=== PATIENT | female | born 1955 | race Caucasian/White ===

== ENCOUNTER 2022-03-19 01:31 | Day surgery (SDC) | payer MEDICARE, OTHER, SELFPAY ==
[2022-03-18 11:51] VITALS: BMI 23.3
[2022-03-19] VITALS (9 sets, daily range): BP systolic 130–161; BP diastolic 74–91; PULSE 74–86; RESP 15–22; TEMP 37; O2SAT 97–100; BMI 23.3
--- NOTE | 2022-03-19 11:10 | P.SEDATION_ITS ---
Moderate Sedation Note-Pt Data Patient Data Diagnosis: History of stroke, valvular heart disease Present Complaint: History of stroke, valvular heart disease Procedure to be performed/Plan: Multiplanar transesophageal echocardiography with color flow and pulse wave Doppler Agitated saline study Moderate sedation Allergies Allergy/AdvReac Type Severity Reaction Status Date / Time alprazolam Allergy Other Verified 03/18/22 12:24 codeine AdvReac Gastrointestinal Verified 03/18/22 12:24 Upset niacin AdvReac Gastrointestinal Verified 03/18/22 12:24 Upset Home Medications Medication Instructions Recorded Confirmed Type amlodipine 5 mg PO DAILY 03/18/22 03/18/22 History buspirone 10 mg PO BID 03/18/22 03/18/22 History dicyclomine 10 mg PO BID PRN 03/18/22 03/18/22 History fluoxetine 20 mg PO DAILY 03/18/22 03/18/22 History oxybutynin chloride 10 mg PO DAILY 03/18/22 03/18/22 History rivaroxaban 15 mg PO DAILY 03/18/22 03/18/22 History rosuvastatin 40 mg PO DAILY 03/18/22 03/18/22 History Current Medications: Active Medications Sodium Chloride (Normal Saline Iv) 1,000 mls @ 30 mls/hr IV CONT .Q24H ROE Sedation/Anesthesia: No previous sedation/anesthesia problems (including family history). [facility] Past Medical History Medical History (Updated 03/19/22 @ 11:11 by Patrick Stiles MD) History of stroke Social History Social History Smoking status: Never smoker Second hand tobacco smoke exposure: No Alcohol use details: rare ETOH use occasional on a holiday Substance use: never Living arrangements: alone Spiritual care concerns: No Mod Sed Physical Exam Physical Exam Pre Procedural Exam: Normal: Appearance, Eyes, Ears, Nose, Neck, Throat, Airway, Lungs, Heart Size, Heart Rate, Heart Rhythm, Neuro Exam, Extremities and Skin Hours since solid foods: 12 Hours since liquid intake: 12 Mallampati Classification: class II Internal Medicine - PN: Obj Da Meds/Results Medications: Active Medications Generic Name Dose Route Start Last Admin Trade Name Freq PRN Reason Stop Dose Admin Sodium Chloride 1,000 mls @ 30 mls/hr 03/19/22 10:30 Normal Saline Iv IV CONT .Q24H ROE ASA Classification/Sedation ASA Classification/Sedation ASA Class: II Emergent: No Risks: Risks, benefits and alternatives explained and patient/family accepted plan for sedation. Patient re-evaluated immediately prior to sedation.
[2022-03-19] MEDS: SODIUM CHLORIDE 0.9% IV 1,000 ML 30 ML IV CONT (11:23)
--- NOTE | 2022-03-19 11:54 | P.PCNTEE_ITS ---
[facility] TransEsophageal Echocardiogram Date of procedure: 03/19/22 Procedure Type: 1. Multiplanar transesophageal echocardiography with color flow and pulse wave Doppler 2. Agitated saline study 3. Moderate sedation Diagnosis: Aortic stenosis, history of stroke Indications: Aortic stenosis, history of stroke Image Quality: Good Findings: After discussing the risks, benefits alternatives of the procedure the patient agreeable via verbal and written informed consent. Risks discussed include esophageal rupture perforation, need for emergent surgery, bleeding, pain, infection, . After written and verbal informed consent was signed, serial blood pressure assessments, pulse oxygenation continuous telemetry monitoring was established. Sedation: 10 cc of viscous lidocaine gargle and swallow, her can spread the hypopharynx x2. A total of 3 mg of Versed and seventy-five mcg of fentanyl were given in divided dosages. Start time 11:39 a.m. Procedure stop time 11:52 a.m. Medications were administered patient was monitored by Margarita Dsouza RN Complications: None Blood loss: None Findings: Normal left ventricular size and function ejection fraction 65-70%. Moderate left atrial enlargement. The mitral valve is normal with mild mitral regurgitation. The tricuspid valve is normal mild tricuspid regurgitation. Pulmonic valve normal trivial pulmonic regurgitation. Normal right ventricular size and function. Normal right atrial size. Atrial septum is intact without agitated saline or color flow evidence of shunting. Left atrial appendage is normal without mass or thrombus the velocities of of greater than 70 centimeters/second. Aortic root is normal in size measured 2.4 cm. The aortic valve is trileaflet but it appears that the left and right coronary cusps are partially fused. Aortic valve area is moderately stenotic range with planimetry valve area 1.4 centimeter squared. There was a another planimetry heard a valve area of 1.1 which I think is incorrect. There is [id number] aortic regurgitation. The aortic arch is well visualized. There is minimal arthrosclerotic plaquing. Conclusions: 1. Normal left ventricular size and function ejection fraction 65- 75% 2. 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 3. [id number] aortic insufficiency 4. Mild mitral regurgitation 5. Moderate left atrial enlargement 6. Intact atrial septum with negative agitated saline study 7. Moderate sedation
== END 2022-03-19 13:35 | disposition home or self-care (01) ==
PROVIDERS: PCP Internal Medicine; Visit Provider Internal Medicine Cardiovascular Disease
PROC: (CPT 93312; principal; 2022-03-19 11:30)
DX: I35.0 Nonrheumatic aortic (valve) stenosis (principal); I34.0 Nonrheumatic mitral (valve) insufficiency; Z86.73 Personal history of transient ischemic attack (TIA), and cerebral infarction without residual deficits; I13.10 Hypertensive heart and chronic kidney disease without heart failure, with stage 1 through stage 4 chronic kidney disease, or unspecified chronic kidney disease; N18.9 Chronic kidney disease, unspecified; E78.5 Hyperlipidemia, unspecified; D68.2 Hereditary deficiency of other clotting factors; Z85.3 Personal history of malignant neoplasm of breast; F32.9 Major depressive disorder, single episode, unspecified; E78.00 Pure hypercholesterolemia, unspecified; Z92.3 Personal history of irradiation; Z92.21 Personal history of antineoplastic chemotherapy; K30 Functional dyspepsia; Z79.01 Long term (current) use of anticoagulants
CPT/HCPCS: 93312; 93320; 93325; J2250; J2310; J3010; J7030